=== PATIENT | male | born 1940 | race Caucasian/White ===

== ENCOUNTER 2020-04-15 13:46 | Outpatient (CLI) | payer MEDICARE, SELFPAY ==
--- NOTE | 2020-04-15 13:49 | ECG_ITS ---
Measurements Intervals [place] Rate: 78 P: [place]: 0 QRS: -26 QRSD: 95 T: 29 QT: 356 QTc: 408 Interpretive Statements ATRIAL FIBRILLATION CANNOT RULE OUT SEPTAL INFARCT, AGE INDETERMINATE BASELINE ARTIFACT- I, II, III, AVR, AVL, AVF ABNORMAL ECG Electronically Signed On 04-15-2020 14:15:52 CDT by Dany Will D.O.
[2020-04-15 14:25] LABS: Basophils Absolute Auto 0.1 K/mm3 (0.0-0.1); Basophils Percent Auto 1.5 % (0.2-1.2); Eosinophils Absolute Auto 0.1 K/mm3 (0-0.3); Eosinophils Percent Auto 0.8 % (0-4.4); Hematocrit 33.1 % (42.0-52.0); Hemoglobin 11.4 g/dL (14.0-18.0); Immature Granulocyte Absolute 0.08 K/mm3 (0.00-0.031); Immature Granulocyte Percent A 1.1 % (0-0.5); Immature Platelet Fraction Pct 14.2 % (0.9-11.2); Lymphocytes Absolute Auto 1.49 K/mm3 (0.9-3.2); Lymphocytes Percent Auto 20.9 % (18.3-44.2); Mean Corpuscular HGB Conc 34.4 g/dl (32-36); Mean Corpuscular Hemoglobin 28.8 pg (26-34); Mean Corpuscular Volume 83.6 fl (80-100); Monocytes Absolute Auto 0.7 K/mm3 (0.1-0.6); Monocytes Percent Auto 10.1 % (2.6-8.5); Neutrophils Absolute Auto 4.7 K/mm3 (1.3-6.7); Neutrophils Percent Auto 65.6 % (45.5-73.1); Platelet Count Result 161 k/mm3 (150-375); Red Blood Count 3.96 M/mm3 (4.6-6.20); Red Cell Distribution Width 19.5 % (11.5-14.5); White Blood Count 7.1 K/mm3 (4.5-10.0)
[2020-04-15 14:34] LABS: Partial Thromboplastin Time 25.4 SECONDS (22.3-36.8)
[2020-04-15 14:35] LABS: Blood Urea Nitrogen 21 mg/dL (9-20); Calcium 10.7 mg/dL (8.4-10.2); Carbon Dioxide 27 mmol/L (22-30); Chloride 103 mmol/L (98-107); Estimated Glomerular Filt Rate 53; Glucose 110 mg/dL (75-110); Potassium 3.9 mmol/L (3.4-5.0); Sodium 139 mmol/L (137-145)
== END 2020-04-15 13:47 | disposition home or self-care (01) ==
PROVIDERS: Visit Provider Urology
DX: Z01.818 Encounter for other preprocedural examination (principal); C67.9 Malignant neoplasm of bladder, unspecified; R94.31 Abnormal electrocardiogram [ECG] [EKG]; Z79.899 Other long term (current) drug therapy
CPT/HCPCS: 36415; 80048; 85025; 85055; 85610; 85730; 87086; 93005

== ENCOUNTER 2020-04-18 00:52 | Outpatient (CLI) | payer MEDICARE, SELFPAY ==
[2020-04-18 16:39] LABS: SARS-CoV-2 RNA PCR Negative
== END 2020-04-18 00:53 | disposition home or self-care (01) ==
LOC: ANHCOVIDDT 00:53
PROVIDERS: Visit Provider Urology
DX: Z01.812 Encounter for preprocedural laboratory examination (principal); Z20.828 Contact with and (suspected) exposure to other viral communicable diseases
CPT/HCPCS: 87635; C9803; U0003

== ENCOUNTER 2020-04-21 00:37 | Day surgery (SDC) | payer MEDICARE, SELFPAY ==
[2020-04-14 09:51] VITALS: BMI 27.8
--- NOTE | 2020-04-21 08:17 | WPDHPUPDATE1 ---
History and Physical Update Update Date/Time: 04/21/20 08:17 History and Physical has been reviewed, including an updated exam of the patient. There are NO changes in the patient's condition. Risks, benefits, and alternatives have been discussed and questions answered. Patient agrees to proceed with procedure.
--- NOTE | 2020-04-21 10:06 | WPDHPUPDATE1 ---
History and Physical Update Update Date/Time: 04/21/20 10:06 History and Physical has been reviewed, including an updated exam of the patient. There are NO changes in the patient's condition. Risks, benefits, and alternatives have been discussed and questions answered. Patient agrees to proceed with procedure.
--- NOTE | 2020-04-21 10:29 | SUR.PREOP ---
Patient says he was told to stop asprin and take everything else. took plavix yesterday. Dr Caballero spoke with patient. Surgery cancelled. Daughter notified.
== END 2020-04-21 10:40 | disposition home or self-care (01) ==
PROVIDERS: Visit Provider Urology
PROC: 0TBB8ZZ Excision of Bladder, Via Natural or Artificial Opening Endoscopic (ICD-10-PCS; principal; 2020-04-21 13:00)
DX: D49.4 Neoplasm of unspecified behavior of bladder (principal); Z79.02 Long term (current) use of antithrombotics/antiplatelets; Z53.09 Procedure and treatment not carried out because of other contraindication; Z85.51 Personal history of malignant neoplasm of bladder; I10 Essential (primary) hypertension; E11.9 Type 2 diabetes mellitus without complications; Z79.84 Long term (current) use of oral hypoglycemic drugs; M10.9 Gout, unspecified; Z85.048 Personal history of other malignant neoplasm of rectum, rectosigmoid junction, and anus; Z90.49 Acquired absence of other specified parts of digestive tract; Z96.653 Presence of artificial knee joint, bilateral
CPT/HCPCS: 36415; 80048; 85025; 85055; 85610; 85730; 87086; 93005; 99211; A9270; G0463

== ENCOUNTER 2020-05-07 09:08 | Outpatient (CLI) | payer MEDICARE, SELFPAY | END 2020-05-07 09:09 | disposition home or self-care (01) | PROVIDERS: Visit Provider Urology | DX: Z01.818 Encounter for other preprocedural examination (principal); C67.9 Malignant neoplasm of bladder, unspecified | CPT/HCPCS: 87086 ==

== ENCOUNTER 2020-05-09 04:33 | Outpatient (CLI) | payer MEDICARE, SELFPAY ==
[2020-05-09 18:08] LABS: SARS-CoV-2 RNA PCR Negative
== END 2020-05-09 04:34 | disposition home or self-care (01) ==
LOC: ANHCOVIDDT 04:34
PROVIDERS: Visit Provider Urology
DX: Z01.818 Encounter for other preprocedural examination (principal); Z11.59 Encounter for screening for other viral diseases
CPT/HCPCS: 87635; C9803; U0003

== ENCOUNTER 2020-05-12 00:25 | Day surgery (SDC) | payer MEDICARE, SELFPAY ==
[2020-05-05 14:39] VITALS: BMI 27.8
[2020-05-12] VITALS (8 sets, daily range): BP systolic 104–176; BP diastolic 66–92; PULSE 70–99; RESP 18–24; TEMP 36.3–36.7; O2SAT 97–100
--- NOTE | 2020-05-12 13:06 | WPDANESEPPF ---
Anes - Initial Pre Proc Eval Procedure: Operation Date: 05/12/20 15:00 Proposed Procedures p Trans Urethral Resection Bladder Tumor - Miguelangel Caballero MD Date/Time: 05/12/20 13:06 Surgeon: Miguelangel Caballero MD Pre Op Diagnosis: Bladder Cancer Patient Data Age: 79 Gender: M Height: 1.8 m Weight: 90.4 kg Allergies Allergy/AdvReac Type Severity Reaction Status Date / Time crab Allergy Mild Vomiting Verified 05/12/20 13:03 Home Medications Medication Instructions Recorded Confirmed Type allopurinol 300 mg PO DAILY 09/15/19 05/12/20 History atenolol 100 mg PO DAILY 09/15/19 05/12/20 History glipizide 5 mg PO DAILY 09/15/19 05/12/20 History lisinopril-hydrochlorothiazide 1 tablet PO DAILY 09/15/19 05/12/20 History aspirin [Children's Aspirin] 81 mg PO DAILY@0800 #30 tablet 09/17/19 05/12/20 Rx clopidogrel 75 mg PO QAM #30 tablet 09/17/19 05/05/20 Rx levetiracetam [Keppra] 500 mg PO Q12HR #60 tablet 09/17/19 05/12/20 Rx Patient hx anesthesia problems: none Family hx anesthesia problems: none [facility] Past Medical History Medical History (Updated 05/12/20 @ 13:12 by Jagdish Lugo MD) Bladder cancer He has had multiple cystoscopies with transurethral resection of bladder tumor and fulguration over the years per Dr. Caballero. Carotid stenosis, bilateral Cerebellar infarct Chronic anemia Colon cancer Patient had stage II rectal cancer, which was resected and August 2003. He apparently had chemotherapy and radiation thereafter. Diabetes mellitus Generalized seizure (~09/15/19) Gout HTN (hypertension) Pneumonia Surgical History Surgical History H/O arthroscopic knee surgery History of bilateral knee replacement History of colostomy History of partial colectomy August 2003; exploratory laparotomy with low anterior resection of colo rectum. This was complicated by a leak with subsequent transverse loop colostomy. Thereafter he had a repeat exploratory laparotomy with adhesiolysis, takedown and repair of a parastomal hernia, partial descending colectomy, and end descending colostomy. History of removal of Port-a-Cath History of transurethral destruction of bladder lesion On multiple occasions dating back 14 August 2016. Hx of tonsillectomy Social History Social History (Updated 09/15/19 @ 22:22 by Amelia López PA-C) Social History: The patient lives in [place]. His son, Patricio, is his surrogate decision maker and he is listed as a full code. He smoked up to 2 packs of cigarettes per day for 45 years and quit about 25 years ago. No alcohol or drug abuse. His primary care provider is Dr. Mohit Powell. Patient is very active outside in his garden. Gender identity (if verbalized by the patient): Male Anes - Eval Final PreProcedure Day of Procedure 05/12/20 13:06 Patient weight: overweight Heart: regular rate and rhythm Lungs: clear to auscultation and normal air movement Airway: Mallampati scale class II Neurological: alert and oriented Last oral intake: >/= 8 hours ASA classification: III Emergent: no Anesthetic plan: proceed Anesthesia type and monitoring: general LMA Informed Consent: The patient's anesthetic plan and its attendant risks and benefits were discussed with the patient/family/POA. Questions were solicited and answers provided to the satisfaction of the patient/family/POA.
[2020-05-12] MEDS: LACTATED RINGERS 1,000 ML 30 ML IV CONT (13:15)
[2020-05-12 13:18] LABS: Glucose Point of Care 103 (65-105)
--- NOTE | 2020-05-12 13:36 | WPDHPUPDATE1 ---
History and Physical Update Update Date/Time: 05/12/20 13:36 History and Physical has been reviewed, including an updated exam of the patient. There are NO changes in the patient's condition. Risks, benefits, and alternatives have been discussed and questions answered. Patient agrees to proceed with procedure.
[2020-05-12] MEDS: atenoloL 50 MG TABLET 100 MG PO (13:55)
[2020-05-12] MEDS: ceFAZolin 2 GM/D5W 50 ML 2 GM/50 ML BAG IVPB (14:48)
[2020-05-12] MEDS: LIDOCAINE HCL 2% GEL UROJET 10 ML PKG MUCOUS MEM (15:03)
--- NOTE | 2020-05-12 15:11 | PM.PROC ---
Procedure Note - Detailed Date of procedure: 05/12/20 Pre-op diagnosis: Bladder Cancer Post-op diagnosis: same Procedure performed: Urethral dilation with male sounds up to 24 Upper Sorbian. Transurethral section of bladder tumor small Description of procedure: Patient was taken to the operative suite and correctly identified. He was then placed in dorsal lithotomy position once anesthesia was obtained. The urethra would not allow passage of the cystoscope. We thus used male sounds to dilate up to 24 Upper Sorbian. Twenty-four Upper Sorbian resectoscope sheath was then inserted into the bladder. The bladder is inspected in its entirety. He has some small tumors along the anterior wall on the right. These measured approximately 1.5 cm total. We went ahead and resected these areas. He had some mild erythema along prior resection site which was fulgurated. The bladder was drained 2% viscous lidocaine was inserted urethra is taken recovery stable condition. He will be discharged home with pain meds and antibiotics. He is to call for the path results in 1 week time. If develops any problems he will call so we can deal with appropriately. Anesthesia: GLMA Surgeon: Miguelangel Caballero MD Drains: No Packing: No Pathology: yes Complications: No immediate complications Condition: stable Disposition: PACU
[2020-05-12 15:46] LABS: Glucose Point of Care 90 (65-105)
== END 2020-05-12 17:10 | disposition home or self-care (01) ==
PROVIDERS: Visit Provider Urology
PROC: 0TBB8ZZ Excision of Bladder, Via Natural or Artificial Opening Endoscopic (ICD-10-PCS; CPT 52234; principal; 2020-05-12 15:00)
DX: C67.3 Malignant neoplasm of anterior wall of bladder (principal); I10 Essential (primary) hypertension; E11.9 Type 2 diabetes mellitus without complications; G40.909 Epilepsy, unspecified, not intractable, without status epilepticus; D64.9 Anemia, unspecified; I65.23 Occlusion and stenosis of bilateral carotid arteries; Z85.048 Personal history of other malignant neoplasm of rectum, rectosigmoid junction, and anus; Z92.21 Personal history of antineoplastic chemotherapy; Z92.3 Personal history of irradiation; Z79.02 Long term (current) use of antithrombotics/antiplatelets; Z79.82 Long term (current) use of aspirin
CPT/HCPCS: 52234; 87086; 87635; 88305; 88307; A9270; C9803; J0690; J2405; J2704; J3010; J7120; U0003

== ENCOUNTER 2020-12-29 07:29 | Outpatient (CLI) | payer MEDICARE, SELFPAY ==
[2020-12-29 08:15] LABS: Basophils Absolute Auto 0.2 K/mm3 (0.0-0.1); Basophils Percent Auto 1.9 % (0.2-1.2); Eosinophils Absolute Auto 0.1 K/mm3 (0-0.3); Eosinophils Percent Auto 0.8 % (0-4.4); Hematocrit 34.1 % (42.0-52.0); Hemoglobin 11.7 g/dL (14.0-18.0); Immature Granulocyte Absolute 0.21 K/mm3 (0.00-0.031); Immature Granulocyte Percent A 2.5 % (0-0.5); Immature Platelet Fraction Pct 23.1 % (0.9-11.2); Lymphocytes Absolute Auto 0.91 K/mm3 (0.9-3.2); Lymphocytes Percent Auto 10.7 % (18.3-44.2); Mean Corpuscular HGB Conc 34.3 g/dl (32-36); Mean Corpuscular Hemoglobin 29.5 pg (26-34); Mean Corpuscular Volume 86.1 fl (80-100); Monocytes Absolute Auto 0.8 K/mm3 (0.1-0.6); Monocytes Percent Auto 9.1 % (2.6-8.5); Neutrophils Absolute Auto 6.4 K/mm3 (1.3-6.7); Platelet Count Result 126 k/mm3 (150-375); Red Blood Count 3.96 M/mm3 (4.6-6.20); Red Cell Distribution Width 19.6 % (11.5-14.5); White Blood Count 8.5 K/mm3 (4.5-10.0)
[2020-12-29 08:23] LABS: INR 0.9; Prothrombin Time 13.2 Seconds (11.1-14.7)
[2020-12-29 08:24] LABS: Partial Thromboplastin Time 26.4 SECONDS (22.3-36.8)
[2020-12-29 08:26] LABS: Anion Gap 6 mmol/L (8-16); Blood Urea Nitrogen 19 mg/dL (9-20); Calcium 10.7 mg/dL (8.4-10.2); Carbon Dioxide 30 mmol/L (22-30); Chloride 104 mmol/L (98-107); Estimated Glomerular Filt Rate > 60; Glucose 99 mg/dL (75-110); Potassium 3.9 mmol/L (3.4-5.0); Sodium 140 mmol/L (137-145)
[2020-12-29 08:46] LABS: Anisocytosis 1+ (NORMAL); Macrocytosis 1+ (NORMAL); Ovalocytes 1+ (NORMAL); Platelet Estimate Adequate (Adequate); Tear Drop Cells 1+ (NORMAL)
[2020-12-29 08:47] LABS: Acanthocytes 1+ (NORMAL); Poikilocytosis 1+ (NORMAL)
[2020-12-29 08:48] LABS: Schistocytes 1+ (NORMAL)
== END 2020-12-29 07:30 | disposition home or self-care (01) ==
PROVIDERS: PCP Internal Medicine; Visit Provider Urology
DX: Z01.812 Encounter for preprocedural laboratory examination (principal); C67.9 Malignant neoplasm of bladder, unspecified; Z51.81 Encounter for therapeutic drug level monitoring; Z79.899 Other long term (current) drug therapy
CPT/HCPCS: 36415; 80048; 85025; 85055; 85610; 85730; 87086; 87088

== ENCOUNTER → 2021-01-02 06:33 | Outpatient (CLI) | payer MEDICARE, SELFPAY ==
[2021-01-02 19:10] LABS: SARS-CoV-2 RNA PCR Negative
== END ==
PROVIDERS: PCP Internal Medicine; Visit Provider Urology
DX: Z01.812 Encounter for preprocedural laboratory examination (principal); Z20.822 Contact with and (suspected) exposure to COVID-19
CPT/HCPCS: C9803; U0003; U0005

== ENCOUNTER 2021-01-05 00:24 | Day surgery (SDC) | payer MEDICARE, SELFPAY ==
[2020-12-24 10:10] VITALS: BMI 28.8
[2021-01-05 12:43] VITALS: BMI 28.5
[2021-01-05 13:04] VITALS: BP 179/78; PULSE 92; RESP 20; TEMP 36.7; O2SAT 99
[2021-01-05 13:05] LABS: Glucose Point of Care 109 (65-105)
[2021-01-05] MEDS: LACTATED RINGERS 1,000 ML 30 ML IV CONT (13:05)
--- NOTE | 2021-01-05 13:17 | WPDHPUPDATE1 ---
History and Physical Update Update Date/Time: 01/05/21 13:17 History and Physical has been reviewed, including an updated exam of the patient. There are NO changes in the patient's condition. Risks, benefits, and alternatives have been discussed and questions answered. Patient agrees to proceed with procedure.
--- NOTE | 2021-01-05 13:20 | WPDANESEPPF ---
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 Patient Data Age: 80 Gender: M Height: 5 ft 10 in Weight: 90.4 kg Last Vital Signs Temp 98.1 F 01/05/21 13:04 Pulse 92 01/05/21 13:04 Resp 20 01/05/21 13:04 BP 179/78 H 01/05/21 13:04 Pulse Ox 99 01/05/21 13:04 Allergies Allergy/AdvReac Type Severity Reaction Status Date / Time crab AdvReac Mild Vomiting Verified 01/05/21 12:41 Home Medications Medication Instructions Recorded Confirmed Type aspirin [Children's Aspirin] 81 mg PO DAILY@0800 #30 tablet 09/17/19 01/05/21 Rx allopurinol 300 mg tablet 300 mg PO DAILY #90 tablet 10/19/20 01/05/21 Rx clopidogrel 75 mg tablet 75 mg PO QAM #90 tablet 10/19/20 01/05/21 Rx levetiracetam 500 mg tablet 500 mg PO Q12HR #180 tablet 10/19/20 01/05/21 Rx atenolol 100 mg PO QAM 12/24/20 01/05/21 History glipizide 5 mg PO QACDINNER 12/24/20 01/05/21 History lisinopril-hydrochlorothiazide 1 tablet PO QAM 12/24/20 01/05/21 History Laboratory Tests 01/05/21 12:58 POC Capillary Glucose 109 mg/dl mg/dl (65-105) Patient hx anesthesia problems: none Family hx anesthesia problems: none PMFSH Past Medical History Medical History (Updated 11/01/20 @ 19:09 by Mor Howard DO) Bladder cancer He has had multiple cystoscopies with transurethral resection of bladder tumor and fulguration over the years per Dr. Caballero. Carotid stenosis, bilateral Cerebellar infarct Chronic anemia Colon cancer Patient had stage II rectal cancer, which was resected and August 2003. He apparently had chemotherapy and radiation thereafter. Diabetes mellitus Generalized seizure (~09/15/19) Gout HTN (hypertension) Pneumonia Surgical History Surgical History H/O arthroscopic knee surgery History of bilateral knee replacement History of colostomy History of partial colectomy August 2003; exploratory laparotomy with low anterior resection of colo rectum. This was complicated by a leak with subsequent transverse loop colostomy. Thereafter he had a repeat exploratory laparotomy with adhesiolysis, takedown and repair of a parastomal hernia, partial descending colectomy, and end descending colostomy. History of removal of Port-a-Cath History of transurethral destruction of bladder lesion On multiple occasions dating back 14 August 2016. Hx of tonsillectomy Social History Social History (Updated 10/19/20 @ 08:22 by Kalyani Bryan) Social History: The patient lives in [place]. His son, Patricio, is his surrogate decision maker and he is listed as a full code. He smoked up to 2 packs of cigarettes per day for 45 years and quit about 25 years ago. No alcohol or drug abuse. His primary care provider is Dr. Mohit Powell. Patient is very active outside in his garden. Smoking packs per day: 2 Smoking cigarettes per day: 40.0 Years smoked: 35 Smoking pack-years: 70.00 Smoking status: Former smoker Smoking end date: 05/13/90 Alcohol intake: former Alcohol use details: DRANK SOCIALLY IN PAST Substance use: never Living arrangements: with family Additional living arrangements comments: SON Gender identity (if verbalized by the patient): Male Spiritual care concerns: No Anes - Eval Final PreProcedure Day of Procedure 01/05/21 13:20 Patient weight: overweight Heart: regular rate and rhythm Lungs: clear to auscultation Airway: Mallampati scale class II Neurological: alert and oriented Last oral intake: >/= 8 hours ASA classification: III Emergent: no Anesthetic plan: proceed Anesthesia type and monitoring: general LMA and standa
[2021-01-05] MEDS: ceFAZolin 2 GM/D5W 50 ML 2 GM/50 ML BAG IVPB (14:38)
[2021-01-05] MEDS: LIDOCAINE HCL 2% GEL UROJET 10 ML PKG MUCOUS MEM (15:06)
--- NOTE | 2021-01-05 15:07 | PM.PROC ---
Procedure Note - Detailed Date of procedure: 01/05/21 Pre-op diagnosis: malginant neoplasm bladder neck Post-op diagnosis: same Procedure performed: Cysto with bladder biopsy and fulguration Description of procedure: Patient is taken the operative suite correctly identified. Once anesthesia was obtained he was placed in dorsal lithotomy position and prepped draped usual sterile fashion. Twenty-two Mohawk scope was inserted into the bladder. He has couple of if discrete areas which were papillary in nature. This along the posterior wall and left lateral wall. These were cold cup biopsied. We then fulgurated these areas as well as other erythematous areas. Patient tolerated procedure well without any complications. Bladder was drained. 2% viscous lidocaine was inserted urethra. Patient is taken recovery stable condition. He will call for path results next week. Anesthesia: GLMA Surgeon: Miguelangel Caballero MD Drains: No Packing: No Pathology: yes Complications: No immediate complications Condition: stable Disposition: PACU
[2021-01-05 15:11] VITALS: BP 100/62; PULSE 71; RESP 16; TEMP 37.4; O2SAT 100
[2021-01-05 15:23] LABS: Glucose Point of Care 98 (65-105)
[2021-01-05 15:25] VITALS: BP 115/59; PULSE 74; RESP 14; O2SAT 100
[2021-01-05 15:40] VITALS: BP 147/78; PULSE 75; RESP 16; O2SAT 98
[2021-01-05 16:00] VITALS: BP 153/73; PULSE 78
[2021-01-05 16:30] VITALS: BP 170/96; PULSE 93
== END 2021-01-05 16:40 | disposition home or self-care (01) ==
PROVIDERS: PCP Internal Medicine; Visit Provider Urology
PROC: 0TBB8ZX Excision of Bladder, Via Natural or Artificial Opening Endoscopic, Diagnostic (ICD-10-PCS; CPT 52204; principal; 2021-01-05 14:30)
DX: C67.5 Malignant neoplasm of bladder neck (principal); I10 Essential (primary) hypertension; E11.9 Type 2 diabetes mellitus without complications; G40.909 Epilepsy, unspecified, not intractable, without status epilepticus; D64.9 Anemia, unspecified; I65.23 Occlusion and stenosis of bilateral carotid arteries; M10.9 Gout, unspecified; Z85.048 Personal history of other malignant neoplasm of rectum, rectosigmoid junction, and anus; Z92.21 Personal history of antineoplastic chemotherapy; Z92.3 Personal history of irradiation; Z86.73 Personal history of transient ischemic attack (TIA), and cerebral infarction without residual deficits; Z79.82 Long term (current) use of aspirin; Z79.02 Long term (current) use of antithrombotics/antiplatelets; Z79.84 Long term (current) use of oral hypoglycemic drugs; Z93.3 Colostomy status; Z90.49 Acquired absence of other specified parts of digestive tract; Z87.891 Personal history of nicotine dependence
CPT/HCPCS: 52204; 36415; 80048; 82948; 85025; 85055; 85610; 85730; 87086; 87088; 88305; 88342; A9270; C9803; J0690; J2405; J2704; J3010; J7120; U0003; U0005

== ENCOUNTER 2021-04-25 09:54 | Outpatient (CLI) | payer MEDICARE, SELFPAY ==
--- NOTE | ~2021-04-25 | US_ITS ---
EXAMINATION: US carotid duplex BI DATE: 04/25/2021 10:46 INDICATION: Occlusion and stenosis of the bilateral carotid arteries TECHNIQUE: Grayscale, color Doppler, and pulsed Doppler images of the cervical carotid arteries were obtained. The degree of vessel stenosis is placed in one of the following categories: normal, <50%, 5 0-69%, >=70% but less than near-occlusion, near-occlusion, or total occlusion. Note that percent sten osis relative to normal distal artery lumen diameter is indirectly measured from velocity measurement s as described by Praful, et al. Radiology 2003; [id number]. COMPARISON: 09/16/2019 FINDINGS: RIGHT: The right common carotid artery (CCA) peak systolic velocity (PSV) is 81 cm/s. The right internal car otid artery (ICA) PSV is 161 cm/s. The right ICA end-diastolic velocity (EDV) is 39 cm/s. The right I CA/CCA PSV ratio is 2.0. Grayscale and color Doppler images yield an estimate of 50-69% diameter redu ction from plaque in the ICA. The external carotid artery (ECA) PSV is 98 cm/s. There is antegrade fl ow in the right vertebral artery. LEFT: The left CCA PSV is 66 cm/s. The left ICA is occluded with no evident vascular flow on color Doppler. The ECA PSV is 67 cm/s. There is antegrade flow in the left vertebral artery. IMPRESSION: 1. 50-69% stenosis in the right internal carotid artery. 2. Complete occlusion of the left internal carotid artery. 3. Cardiac arrhythmia is present. Correlate with EKG. Reviewed, dictated and finalized at location A.
== END 2021-04-25 09:55 | disposition home or self-care (01) ==
PROVIDERS: PCP Internal Medicine; Visit Provider Nurse Practitioner
DX: I65.23 Occlusion and stenosis of bilateral carotid arteries (principal)
CPT/HCPCS: 93880

== ENCOUNTER → 2021-09-08 09:03 | Outpatient (CLI) | payer MEDICARE, SELFPAY ==
--- NOTE | ~2021-09-08 | XR_ITS ---
EXAMINATION: XR foot LT min 3V DATE: 09/08/2021 09:58 INDICATION: Left foot pain TECHNIQUE: Dorsoplantar, lateral, and 2 oblique views of the left foot were obtained. COMPARISON: None. FINDINGS: Bone alignment is normal. There is no fracture. There is moderate polyarticular osteoarthri tis involving multiple interphalangeal joints. Calcified atherosclerosis is noted. There is a plantar calcaneal enthesophyte. IMPRESSION: 1. No acute osseous abnormality. Reviewed, dictated and finalized at location A.
== END ==
PROVIDERS: PCP Internal Medicine; Visit Provider Internal Medicine
DX: M79.675 Pain in left toe(s) (principal); M77.32 Calcaneal spur, left foot; I70.90 Unspecified atherosclerosis
CPT/HCPCS: 73630

== ENCOUNTER → 2021-09-10 10:35 | Outpatient (CLI) | payer MEDICARE, SELFPAY ==
--- NOTE | ~2021-09-10 | XR_ITS ---
EXAMINATION: XR hip BI wo pelvis INDICATION: Bilateral hip pain TECHNIQUE: Two views of each hip are obtained. COMPARISON: None available FINDINGS: Bone alignment is normal. There is no fracture. There is mild osteoarthritis of the hips. C alcified atherosclerosis is noted. A surgical anastomosis is noted in the pelvis. There are also surg ical clips in the pelvis and left abdomen. IMPRESSION: 1. Mild osteoarthritis of the hips. Reviewed, dictated and finalized at location A.
== END ==
PROVIDERS: PCP Internal Medicine; Visit Provider Internal Medicine
DX: M25.559 Pain in unspecified hip (principal); M16.0 Bilateral primary osteoarthritis of hip
CPT/HCPCS: 73521

== ENCOUNTER 2021-09-27 14:12 | Outpatient (CLI) | payer MEDICARE, SELFPAY ==
--- NOTE | ~2021-09-27 | US_ITS ---
EXAMINATION: US art doppler w press YU EXAM DATE: 09/27/2021 15:20 INDICATION: Bilateral peripheral arterial disease, left foot ulcer. Poor left foot pulses. Hypertensi on. TECHNIQUE: Segmental pressures and plethysmographic and Doppler waveforms of the brachial and lower e xtremity arteries were obtained. There is no prior study for comparison. FINDINGS: Right and left brachial artery pressures of 150 mm Hg and 150 mm Hg, respectively, are concordant (no rmal difference <= 30 mmHg). RIGHT LEG: The ankle-brachial index (JOCELIN) is 1.05 (normal >= 0.9-1). The great toe-brachial index (TBI) is 0.57 (normal >= 0.65). The lower extremity ratios, segmental pressure gradients as follows; Proximal superficial femoral artery:- Could not obtain ( mmHg). Distal superficial femoral artery: ----- 1.13 (170 mmHg). Popliteal: Could not obtain ( mmHg). Dorsalis pedis: 1.05 (157 mmHg). Posterior tibial: Could not obtain ( mmHg). (Normal gradients <= 20-30 mmHg between adjacent levels on the same leg or the same levels on the two legs). Arterial waveforms are monophasic dorsalis pedis, otherwise biphasic. LEFT LEG: The ankle-brachial index (JOCELIN) is 0.55 (normal >= 0.9-1). The great toe-brachial index (TBI) is 0.38 (normal >= 0.65). The lower extremity ratios, segmental pressure gradients as follows; Proximal superficial femoral artery:- Could not obtain ( mmHg). Distal superficial femoral artery: ----- Could not obtain ( mmHg). Popliteal: Could not obtain ( mmHg). Dorsalis pedis: 0.55 (83 mmHg). Posterior tibial: Could not obtain ( mmHg). (Normal gradients <= 20-30 mmHg between adjacent levels on the same leg or the same levels on the two legs). Arterial waveforms are biphasic through popliteal, monophas ic below. IMPRESSION: 1. Right ankle-brachial index 1.05, normal. 2. Left ankle-brachial index 0.55, moderately decreased. 3. Segmental pressures as above. Reviewed, dictated and finalized at location B. REAMER
== END 2021-09-27 14:13 | disposition home or self-care (01) ==
PROVIDERS: PCP Internal Medicine; Visit Provider Podiatrist Foot & Ankle Surgery
DX: I73.9 Peripheral vascular disease, unspecified (principal)
CPT/HCPCS: 93923

== ENCOUNTER 2021-10-22 14:52 | Observation (INO) | payer MEDICARE, SELFPAY ==
[2021-10-22] VITALS (13 sets, daily range): BP systolic 106–131; BP diastolic 39–88; PULSE 84–98; RESP 14–22; TEMP 36.8–37.5; O2SAT 98–100; BMI 26.9
[2021-10-22 16:11] LABS: Basophils Absolute Auto 0.1 K/mm3 (0.0-0.1); Eosinophils Percent Auto 0.3 % (0-4.4); Immature Granulocyte Absolute 0.32 K/mm3 (0.00-0.031); Immature Granulocyte Percent A 4.7 % (0-0.5); Immature Platelet Fraction Pct 34.8 % (0.9-11.2); Lymphocytes Absolute Auto 0.89 K/mm3 (0.9-3.2); Lymphocytes Percent Auto 12.9 % (18.3-44.2); Mean Corpuscular HGB Conc 30.4 g/dl (32-36); Mean Corpuscular Hemoglobin 26.5 pg (26-34); Mean Corpuscular Volume 87.2 fl (80-100); Monocytes Absolute Auto 1.1 K/mm3 (0.1-0.6); Monocytes Percent Auto 15.4 % (2.6-8.5); Neutrophils Absolute Auto 4.5 K/mm3 (1.3-6.7); Neutrophils Percent Auto 65.7 % (45.5-73.1); Platelet Count Result 119 k/mm3 (150-375); Red Blood Count 2.19 M/mm3 (4.6-6.20); Red Cell Distribution Width 23.7 % (11.5-14.5); White Blood Count 6.9 K/mm3 (4.5-10.0)
[2021-10-22 16:18] LABS: INR 2.6; Prothrombin Time 27.5 Seconds (11.1-14.7)
[2021-10-22 16:19] LABS: Anion Gap 6 mmol/L (8-16); Blood Urea Nitrogen 23 mg/dL (9-20); Calcium 9.3 mg/dL (8.4-10.2); Carbon Dioxide 25 mmol/L (22-30); Chloride 98 mmol/L (98-107); Estimated CRCL calculation 47 ml/min; Estimated Glomerular Filt Rate > 60; Glucose 101 mg/dL (65-110); Partial Thromboplastin Time 41.3 SECONDS (22.3-36.8); Potassium 4.2 mmol/L (3.4-5.0); Sodium 129 mmol/L (137-145)
[2021-10-22 17:14] LABS: Hematocrit 19.1 % (42.0-52.0); Hemoglobin 5.8 g/dL (14.0-18.0)
[2021-10-22 17:16] LABS: Hypochromasia 1+ (NORMAL); Platelet Estimate Decreased (Adequate)
[2021-10-22 17:17] LABS: Anisocytosis 1+ (NORMAL); Ovalocytes 2+ (NORMAL); Poikilocytosis 2+ (NORMAL)
[2021-10-22 17:18] LABS: Acanthocytes 1+ (NORMAL); Schistocytes 2+ (NORMAL)
--- NOTE | 2021-10-22 17:23 | PC.NURSE ---
Pt updated on test results and treatment plan. Pt agreeable to blood transfusion. Blood consent obtained.
--- NOTE | 2021-10-22 17:35 | ED.GENADULT ---
HPI - General Adult General Chief complaint: Recheck/Abnormal Lab/Rx Stated complaint: needs blood transfusion Time Seen by Provider: 10/22/21 15:22 History of Present Illness HPI narrative: Patient is an 81-year-old male who presents ER with abnormal outpatient lab work. Patient has been having intermittent nosebleeds over the last month. He is on Xarelto. Reports when he has a nosebleed that lasted for approximately 1 hour. Last nosebleed was today but it has stopped on its own. Patient's outpatient labs show that he had a hemoglobin around 6. Denies any dark black stools. No hematemesis. Patient also reports that he has vascular surgery scheduled in the early part of next week for some ischemic ulcers on his foot. He is supposed to hold his Xarelto starting 10/24/2021. Patient reports exertional fatigue as well as dizziness when going from sitting to standing. He is quite pale. Related Data Home Medications Medication Instructions Recorded Confirmed atenolol 100 mg PO QAM 12/24/20 09/08/21 lisinopril-hydrochlorothiazide 1 tablet PO QAM 12/24/20 09/08/21 Allergies Allergy/AdvReac Type Severity Reaction Status Date / Time crab AdvReac Mild Vomiting Verified 10/22/21 15:55 Review of Systems Review of Systems: All systems reviewed & are unremarkable except as noted in HPI and below Constitutional: Constitutional: Reports chills, Reports fatigue and Denies fever(s) ENT: Reports epistaxis, Denies nasal congestion and Denies sore throat Cardiovascular: Cardiovascular: Denies chest pain, Denies rapid heart rate and Denies radiating jaw, neck or arm pain Respiratory: Respiratory: Denies chest congestion, Denies cough, Reports dyspnea and Denies wheezing Gastrointestinal: Gastrointestinal: Denies abdominal pain, Denies constipation, Denies diarrhea, Denies nausea and Denies vomiting PMFSH Past Medical History Medical History Bladder cancer He has had multiple cystoscopies with transurethral resection of bladder tumor and fulguration over the years per Dr. Caballero. Carotid stenosis, bilateral Cerebellar infarct Chronic anemia Colon cancer Patient had stage II rectal cancer, which was resected and August 2003. He apparently had chemotherapy and radiation thereafter. Diabetes mellitus Generalized seizure (~09/15/19) Gout HTN (hypertension) Pneumonia Surgical History Surgical History H/O arthroscopic knee surgery History of bilateral knee replacement History of colostomy History of partial colectomy August 2003; exploratory laparotomy with low anterior resection of colo rectum. This was complicated by a leak with subsequent transverse loop colostomy. Thereafter he had a repeat exploratory laparotomy with adhesiolysis, takedown and repair of a parastomal hernia, partial descending colectomy, and end descending colostomy. History of removal of Port-a-Cath History of transurethral destruction of bladder lesion On multiple occasions dating back 14 August 2016. Hx of tonsillectomy Social History Social History Social History: The patient lives in [place]. His son, Patricio, is his surrogate decision maker and he is listed as a full code. He smoked up to 2 packs of cigarettes per day for 45 years and quit about 25 years ago. No alcohol or drug abuse. His primary care provider is Dr. Mohit Powell. Patient is very active outside in his garden. Smoking packs per day: 2 Smoking cigarettes per day: 40.0 Years smoked: 35 Smoking pack-years: 70.00 Smoking status: Former smoker Second hand tobacco smoke exposure: No Smoking end date: 05/13/90 Alcohol intake: former Alcohol use details: DRANK SOCIALLY IN PAST Substance use: never Substance use type: does not use Additional living arrangements comments: SON Gender identi
[2021-10-22] MEDS: SODIUM CHLORIDE 0.9% IV 250 ML 30 ML IV CONT (18:00)
[2021-10-22] MEDS: TUBING, BLOOD SET 1 EACH XX (18:00)
--- NOTE | 2021-10-22 18:00 | PC.NURSE ---
Blood transfusion initiated. Pt denies previous blood transfusions or adverse reaction.
--- NOTE | 2021-10-22 18:15 | PC.NURSE ---
Pt tolerating blood transfusion well. No adverse reaction noted. VSS.
--- NOTE | 2021-10-22 19:55 | PM.IMHP ---
H&P: HPI History of Present Illness Date/Time: 10/22/21 19:55 Chief Complaint: Abnormal lab value Narrative: This is an 81-year-old male with past medical history significant for atrial fibrillation, anticoagulated with Xarelto rate controlled, hypertension, gout. Patient presented to the emergency room after outpatient lab work showed a hemoglobin of 5 and hematocrit of 19. Patient states that he has been having nose bleeds frequent for the last several days or so in 1 instance had his nose packed and irrigated. Patient feels fatigued short of breath dizzy and lightheaded and has had palpitations as well, he denies any melena bright red blood per rectum hematemesis or hemoptysis but has significant epistaxis, denies any weight loss, any PND, any orthopnea, chest pain, leg swelling, fevers, rigors or chills, cough or sputum production, no weight loss no changes in stool habits or character. Has a left foot ulcer at the plantar aspect base of the 1st metatarsal which he has been seeing a doctor in the outpatient setting for this. In emergency room preliminary workup was significant for CBC with hemoglobin of 5 and hematocrit of 19. Patient has been admitted for further management, evaluation and treatment. Review of Systems Review of Systems: Abnormal lab value fatigue shortness of breath palpitations left foot ulcer nose bleeds Constitutional: Constitutional: Denies chills, Reports fatigue, Denies fever(s), Denies malaise, Denies night sweats, Denies poor appetite and Denies weakness Eyes: Eyes: Denies change in vision ENT: Denies dysphagia, Denies nasal congestion, Denies nasal discharge, Denies nasal obstruction and Denies odynophagia Comments: Epistaxis Cardiovascular: Cardiovascular: Reports rapid heart rate, Denies irregular heart rhythm, Denies leg edema, Reports lightheadedness, Denies radiating jaw, neck or arm pain, Denies palpitations, Denies dyspnea on exertion, Denies orthopnea and Denies paroxysmal nocturnal dyspnea Respiratory: Respiratory: Denies chest congestion, Denies cough, Denies excessive phlegm production and Denies wheezing Gastrointestinal: Gastrointestinal: Denies abdominal pain, Denies melena, Denies hematochezia, Denies change in bowel habits, Denies change in stool character, Denies coffee ground emesis, Denies dyspepsia, Denies heartburn, Denies nausea and Denies vomiting Genitourinary: Genitourinary: Denies dysuria and Denies flank pain Integumentary/Breasts: Skin/Breast: Reports wounds (Left foot) Neurologic: Denies focal weakness and Denies Sensory deficit (Neuro) Psychiatric: Psychiatric: Reports no additional psychiatric complaints and Reports as per HPI Endocrine: Endocrine: Reports no additional endocrine complaints and Reports as per HPI Hematologic/Lymphatic: Hematologic/Lymphatic: Reports no additional hematologic/lymphatic complaints and Reports as per HPI Allergic/Immunologic: Allergic/Immunologic: Reports no additional allergic/immunologic complaints and Reports as per HPI PMFSH Past Medical History Medical History Bladder cancer He has had multiple cystoscopies with transurethral resection of bladder tumor and fulguration over the years per Dr. Caballero. Carotid stenosis, bilateral Cerebellar infarct Chronic anemia Colon cancer Patient had stage II rectal cancer, which was resected and August 2003. He apparently had chemotherapy and radiation thereafter. Diabetes mellitus Generalized seizure (~09/15/19) Gout HTN (hypertension) Pneumonia Surgical History Surgical History H/O arthroscopic knee surgery History of bilateral knee replacement History of colostomy History of partial colectomy August 2003; exploratory laparotomy with low anterior resection of colo rectum. This was complicated by a leak with subsequent transverse loop colostomy. Thereafter he had a repeat exploratory lap
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
--- NOTE | 2021-10-22 21:05 | ADMGEN ---
This patient, Byron De Los Santos, was admitted to Medical Room 345-. Patient/family oriented to hospital policies and general routines including ID bracelet, bed and alarms, visiting hours, pain management, procedures, bathroom and other care routines, personal items, smoking policy, room service/diet, and visiting hours. Information on how to activate the Rapid Response Team has been discussed. Patient/Family are encouraged to report perceived risks to care and to ask questions if they do not understand what they are told or what they should do.
[2021-10-22 21:24] LABS: Glucose Point of Care 139 mg/dl (65-105)
[2021-10-22] MEDS: SODIUM CHLORIDE 0.9% IV 250 ML 30 ML (22:12)
[2021-10-23 00:54] VITALS: BP 131/54; PULSE 95; RESP 16; TEMP 36.7; O2SAT 99
[2021-10-23 01:58] VITALS: BP 119/50; PULSE 94; RESP 18; TEMP 37.3; O2SAT 100
[2021-10-23 06:00] VITALS: BP 128/65; PULSE 105; RESP 18; TEMP 36.1; O2SAT 98
[2021-10-23 06:02] LABS: Hemoglobin 7.8 g/dL (14.0-18.0); Immature Platelet Fraction Pct 34.1 % (0.9-11.2); Mean Corpuscular HGB Conc 32.5 g/dl (32-36); Mean Corpuscular Hemoglobin 28.2 pg (26-34); Mean Corpuscular Volume 86.6 fl (80-100); Platelet Count Result 106 k/mm3 (150-375); Red Blood Count 2.77 M/mm3 (4.6-6.20); Red Cell Distribution Width 20.8 % (11.5-14.5); White Blood Count 8.1 K/mm3 (4.5-10.0)
[2021-10-23 06:15] LABS: Anion Gap 7 mmol/L (8-16); Blood Urea Nitrogen 20 mg/dL (9-20); Calcium 9.1 mg/dL (8.4-10.2); Carbon Dioxide 25 mmol/L (22-30); Chloride 101 mmol/L (98-107); Estimated CRCL calculation 47 ml/min; Estimated Glomerular Filt Rate > 60; Glucose 95 mg/dL (65-110); Sodium 133 mmol/L (137-145)
[2021-10-23 07:57] LABS: Glucose Point of Care 76 mg/dl (65-105)
[2021-10-23 08:21] VITALS: PULSE 88
[2021-10-23] MEDS: allopurinoL 300 MG TABLET PO (08:21)
[2021-10-23] MEDS: atenoloL 50 MG TABLET 100 MG PO (08:21)
[2021-10-23] MEDS: levETIRAcetam 500 MG TABLET PO ×2 (08:21→21:15)
[2021-10-23] MEDS: NEOMYCIN/POLYMYXIN/BACITRACIN OINTMENT 15 GM TUBE 1 APPLIC TOPICAL ×2 (09:54→21:16)
--- NOTE | 2021-10-23 10:54 | WPDGICN ---
Assessment and Plan Assessment and plan (1) Acute blood loss anemia: Code(s): D62 - Acute posthemorrhagic anemia Status: Acute Assessment and Plan: most likely for intermittent epistaxis for almost a month in setting of retirement use of xarelto patient denies any overt gib, he has a colostomy bag and always had brown stool, denies upper gi symptoms and he says that had recent colonoscopy (h/o rectal cancer several years ago) I offered to do EGD to make sure that no gi source of acute anemia but patients does not want to get procedure, he is comfortable and denies upper gi symptoms ok to continue with diet monitor hb and hold anticoagulation probably will need ENT evaluation again please call us if questions (2) Left-sided epistaxis: Code(s): R04.0 - Epistaxis Status: Acute Assessment and Plan: right now stopped (3) Atrial fibrillation: Code(s): I48.91 - Unspecified atrial fibrillation Status: Acute (4) Colon cancer: Code(s): C18.9 - Malignant neoplasm of colon, unspecified Status: Acute Assessment and Plan: he has been getting his surveillance colonoscopies as recommended (5) Colostomy in place: Code(s): Z93.3 - Colostomy status Status: Acute Assessment and Plan: only brown stool (6) Anticoagulant long-term use: Code(s): Z79.01 - nursing home (current) use of anticoagulants Status: Acute GI Consult Note Consult date/time: 10/23/21 10:54 Reason for consult: acute blood loss anemia, epistaxis HPI: Byron De Los Santos is a 81 year old male with history of colon cancer on August 2003; exploratory laparotomy with low anterior resection of rectum, complicated by a leak with subsequent transverse loop colostomy. Thereafter he had a repeat exploratory laparotomy with adhesiolysis, takedown and repair of a parastomal hernia, partial descending colectomy, and end descending colostomy. He says that has been having colonoscopies regularly, last time about 2 years ago and told to come back in 2 years. Also has Afib on xarelto, DM, HTN, gout. He has been having intermittent epistaxis for almost a month now, he actually went to see ENT last month (reviewed records) that performed anterior Cautery with silver nitrate and Packing Anterior Nosebleed, he kept packing for 3 days and did not have more recurrence but last few days again with more epistaxis, lately has been feeling more fatigued with short of breath on exertion, dizzy and lightheaded. Blood work as outpatient revealed hb 5, admitted to hospital and given blood transfusion. He denies dark stools (only brown stool in colostomy bag), no rectal bleeding, denies abdominal pain or gerd symptoms. He is feeling better after transfusion. Review of Systems Constitutional: Constitutional: Denies chills Eyes: Eyes: Denies blurry vision ENT: Reports Normal hearing present and Reports epistaxis Cardiovascular: Cardiovascular: Reports palpitations Respiratory: Respiratory: Reports dyspnea on exertion Gastrointestinal: Gastrointestinal: Denies abdominal pain, Denies melena, Denies nausea and Denies vomiting Genitourinary: Genitourinary: Denies dysuria Musculoskeletal: Musculoskeletal: Denies neck pain Integumentary/Breasts: Skin/Breast: Denies dry skin Neurologic: Denies headache(s) Psychiatric: Psychiatric: Reports no additional psychiatric complaints PMFSH Past Medical History Medical History (Updated 10/23/21 @ 11:01 by Roman Ortega MD) Anticoagulant long-term use Bladder cancer He has had multiple cystoscopies with transurethral resection of bladder tumor and fulguration over the years per Dr. Caballero. Carotid stenosis, bilateral Cerebellar infarct Chronic anemia Colon cancer Patient had stage II rectal cancer, which was resected and August 2003. He apparently had chemotherapy and radiation thereafter. Diabetes mellitus Generalized seizure (~09/15/19) Gout HTN (hype
[2021-10-23 11:29] LABS: Hematocrit 23.9 % (42.0-52.0); Hemoglobin 7.5 g/dL (14.0-18.0); Immature Platelet Fraction Pct 36.5 % (0.9-11.2); Mean Corpuscular HGB Conc 31.4 g/dl (32-36); Mean Corpuscular Hemoglobin 27.4 pg (26-34); Mean Corpuscular Volume 87.2 fl (80-100); Platelet Count Result 107 k/mm3 (150-375); Red Blood Count 2.74 M/mm3 (4.6-6.20); Red Cell Distribution Width 21.1 % (11.5-14.5); White Blood Count 9.4 K/mm3 (4.5-10.0)
[2021-10-23 14:00] VITALS: BP 131/63; PULSE 87; RESP 18; TEMP 36.5; O2SAT 98
--- NOTE | 2021-10-23 14:59 | PM.IMPN ---
Progress Note: A&P Assessment and Plan (1) Acute blood loss anemia: Code(s): D62 - Acute posthemorrhagic anemia Status: Acute Assessment and Plan: Transfuse as needed Likely secondary to profuse epistaxis Continue to monitor 10/23/2021 interval history patient with a anemia and concern epistaxis on and off with Xarelto, patient is seen GI does not suspect it is a GI source of bleed it patient has a colostomy bag there is always brown stool and no blood, patient be seen ENT and further recommendation to follow will continue to monitor. (2) Left-sided epistaxis: Code(s): R04.0 - Epistaxis Status: Acute Assessment and Plan: ENT consult Stable (3) Atrial fibrillation: Code(s): I48.91 - Unspecified atrial fibrillation Status: Acute Assessment and Plan: Holding Xarelto Rate controlled (4) Colostomy in place: Code(s): Z93.3 - Colostomy status Status: Acute Assessment and Plan: Colostomy care (5) Bladder cancer: Code(s): C67.9 - Malignant neoplasm of bladder, unspecified Status: Acute Assessment and Plan: Status post resection (6) HTN (hypertension): Code(s): I10 - Essential (primary) hypertension Status: Acute Assessment and Plan: Holding antihypertensive due to severe anemia Restart as needed (7) Diabetes mellitus: Code(s): E11.9 - Type 2 diabetes mellitus without complications Status: Acute Assessment and Plan: Holding glipizide Insulin sliding scale as needed (8) Carotid stenosis, bilateral: Code(s): I65.23 - Occlusion and stenosis of bilateral carotid arteries Status: Acute Assessment and Plan: Unchanged (9) Foot ulcer: Code(s): L97.509 - Non-pressure chronic ulcer of other part of unspecified foot with unspecified severity Status: Acute Assessment and Plan: Local care Subjective Date/time seen: 10/23/21 14:59 Chief Complaint: Abnormal lab value Narrative: This is an 81-year-old male with past medical history significant for atrial fibrillation, anticoagulated with Xarelto rate controlled, hypertension, gout. Patient presented to the emergency room after outpatient lab work showed a hemoglobin of 5 and hematocrit of 19. Patient states that he has been having nose bleeds frequent for the last several days or so in 1 instance had his nose packed and irrigated. Patient feels fatigued short of breath dizzy and lightheaded and has had palpitations as well, he denies any melena bright red blood per rectum hematemesis or hemoptysis but has significant epistaxis, denies any weight loss, any PND, any orthopnea, chest pain, leg swelling, fevers, rigors or chills, cough or sputum production, no weight loss no changes in stool habits or character. Has a left foot ulcer at the plantar aspect base of the 1st metatarsal which he has been seeing a doctor in the outpatient setting for this. In emergency room preliminary workup was significant for CBC with hemoglobin of 5 and hematocrit of 19. Patient has been admitted for further management, evaluation and treatment. 10/23/2021 interval history patient with a anemia and concern epistaxis on and off with Xarelto, patient is seen GI does not suspect it is a GI source of bleed it patient has a colostomy bag there is always brown stool and no blood, patient be seen ENT and further recommendation to follow will continue to monitor. Review of Systems Review of Systems: All systems reviewed & are unremarkable except as noted in HPI and below Exam Narrative: elderly frail Patient is comfortable, NAD HEENT: eyes are clear and none icteric, there is a dried blood in both nostrils LUNGS: normal respiratory effort. ABD: not distended Lower extremities: no edema SKIN: nonjaundiced Neuro: grossly intact. Objective Data Vital Signs Vital Signs: Vital Signs - 24 hr 10/22/21 15:12 10/22/21 15:3
[2021-10-23 20:55] LABS: Glucose Point of Care 100 mg/dl (65-105)
[2021-10-23 21:07] VITALS: BP 129/50; PULSE 96; RESP 12; TEMP 36.9; O2SAT 99
[2021-10-24 05:48] VITALS: BP 133/64; PULSE 94; RESP 12; TEMP 36.4; O2SAT 99
[2021-10-24 07:35] LABS: Hemoglobin 7.7 g/dL (14.0-18.0); Immature Platelet Fraction Pct 35.6 % (0.9-11.2); Mean Corpuscular HGB Conc 32.1 g/dl (32-36); Mean Corpuscular Hemoglobin 27.5 pg (26-34); Mean Corpuscular Volume 85.7 fl (80-100); Platelet Count Result 99 k/mm3 (150-375); Red Cell Distribution Width 20.9 % (11.5-14.5); White Blood Count 7.7 K/mm3 (4.5-10.0)
[2021-10-24 07:37] LABS: Anion Gap 8 mmol/L (8-16); Blood Urea Nitrogen 20 mg/dL (9-20); Calcium 9.1 mg/dL (8.4-10.2); Carbon Dioxide 22 mmol/L (22-30); Chloride 102 mmol/L (98-107); Estimated CRCL calculation 57 ml/min; Estimated Glomerular Filt Rate > 60; Glucose 90 mg/dL (65-110); Potassium 3.8 mmol/L (3.4-5.0); Sodium 132 mmol/L (137-145)
[2021-10-24 07:56] LABS: Glucose Point of Care 83 mg/dl (65-105)
[2021-10-24] MEDS: allopurinoL 300 MG TABLET PO (08:29)
[2021-10-24] MEDS: NEOMYCIN/POLYMYXIN/BACITRACIN OINTMENT 15 GM TUBE 1 APPLIC TOPICAL (08:30)
[2021-10-24] MEDS: atenoloL 50 MG TABLET 100 MG PO (08:30)
[2021-10-24 09:14] VITALS: BP 117/87; PULSE 90; RESP 24; TEMP 36.3; O2SAT 100
--- NOTE | 2021-10-24 10:23 | WPDGIPROGNO ---
Progress Note: A&P Assessment and Plan (1) Acute blood loss anemia: Code(s): D62 - Acute posthemorrhagic anemia Status: Acute Assessment and Plan: hb low but stable since blood transfusion no signs of gib and most likely cause is intermittent epistaxis for last month in setting of detention AC he does not want to proceed with endoscopic evaluation anyways follow-up with ENT will sign off (2) Left-sided epistaxis: Code(s): R04.0 - Epistaxis Status: Acute (3) Anticoagulant long-term use: Code(s): Z79.01 - custodial (current) use of anticoagulants Status: Acute (4) Colostomy in place: Code(s): Z93.3 - Colostomy status Status: Acute (5) Atrial fibrillation: Code(s): I48.91 - Unspecified atrial fibrillation Status: Acute (6) Colon cancer: Code(s): C18.9 - Malignant neoplasm of colon, unspecified Status: Acute Assessment and Plan: he says that has been getting his colonoscopies as recommended Subjective Date/time seen: 10/24/21 10:23 Interval history: no more epistaxis, tolerating regular diet and no signs of gib (still brown stool in ostomy bag) Review of Systems Review of Systems: All systems reviewed & are unremarkable except as noted in HPI and below Exam Const: General: comfortable and no acute distress HENMT: Other: dried blood in nostril, no more bleeding Eyes: Sclera: sclerae normal Neck: Neck: supple Resp: Auscultation: clear to auscultation bilaterally Cardio: Rate: regular rate GI: GI Palp: No Tenderness to palpation present (GI) and No Guarding due to palpation present (GI) Auscultation: normal bowel sounds Other: brown stool in ostomy bag Skin: General skin exam: no rashes or lesions noted Neuro: Speech: normal speech Extrem: General: normal to inspection Psych: Mental Status: mental status grossly normal Affect: normal affect Objective Data Vital Signs Vital Signs: Vital Signs - 24 hr 10/23/21 14:00 10/23/21 21:07 10/24/21 05:48 Temperature 97.7 F 98.4 F 97.5 F L Pulse Rate 87 96 94 Respiratory Rate 18 12 12 Blood Pressure 131/63 129/50 L 133/64 Pulse Oximetry 98 99 99 10/24/21 09:14 Temperature 97.3 F L Pulse Rate 90 Respiratory Rate 24 H Blood Pressure 117/87 Pulse Oximetry 100 Intake/Output Intake/Output: Intake & Output 10/21/21 10/22/21 10/23/21 10/24/21 23:59 23:59 23:59 23:59 Intake Total 350 1770 300 Output Total 100 1200 Balance 250 570 300 Meds/Results Medications: Active Medications Generic Name Dose Route Start Last Admin Trade Name Freq PRN Reason Stop Dose Admin Acetaminophen 650 mg 10/22/21 17:33 Acetaminophen 325 Mg Tablet PO Q4H PRN Mild Pain (1-3) or Fever Acetaminophen 650 mg 10/23/21 02:11 Acetaminophen 325 Mg Tablet PO Q8H PRN Pain Rated 1-3 Hydrocodone Bitart/Acetaminophen 1 tab 10/22/21 17:33 Hydrocodone/Acetaminophen (*Crx) 5-325 Mg Tablet PO Q4H PRN Pain Rated 4-6 Allopurinol 300 mg 10/23/21 08:00 10/24/21 08:29 Allopurinol 300 Mg Tablet PO 300 mg DAILY@0800 ANNY Administration Atenolol 100 mg 10/23/21 09:00 10/24/21 08:30 Atenolol 50 Mg Tablet PO 100 mg QAM ANNY Administration Dextrose 12.5 gm 10/24/21 08:03 Dextrose 50% 25 Gm/50 Ml Syringe IV PUSH PRN PRN Hypoglycemia Protocol Glucagon 1 mg 10/24/21 08:03 Glucagon For Inj 1 Mg Vial IM PRN PRN Hypoglycemia Protocol Glucose 15 gm 10/24/21 08:03 Glucose Oral Gel 15 Gm Of Glucse In 37.5 Gm Tube PO PRN PRN Hypoglycemia Protocol Dextrose 1,000 mls @ 100 mls/hr 10/24/21 08:03 Dextrose 5% 1,000 Ml IVPB PRN PRN Hypoglycemia Protocol Insulin Aspart 2 - 5 units 10/24/21 12:00 Insulin Aspart (*Bkc) 100 Units/Ml SUB-Q TIDWM [facility] Protocol Levetiracetam 500 mg 10/23/21 09:00 10/23/21 21:15 Levetiracetam 500 Mg
--- NOTE | 2021-10-24 10:24 | PM.DS ---
DS: Admitting Diagnosis Discharge Date 10/24/2021 Admitting Diagnosis Abnormal lab anemia DS: Discharge Diagnosis Discharge Diagnosis (1) Acute blood loss anemia: Code(s): D62 - Acute posthemorrhagic anemia Status: Acute Assessment and Plan: Transfuse as needed Likely secondary to profuse epistaxis Continue to monitor 10/23/2021 interval history patient with a anemia and concern epistaxis on and off with Xarelto, patient is seen GI does not suspect it is a GI source of bleed it patient has a colostomy bag there is always brown stool and no blood, patient be seen ENT and further recommendation to follow will continue to monitor. (2) Left-sided epistaxis: Code(s): R04.0 - Epistaxis Status: Acute Assessment and Plan: ENT consult Stable (3) Atrial fibrillation: Code(s): I48.91 - Unspecified atrial fibrillation Status: Acute Assessment and Plan: Holding Xarelto Rate controlled (4) Colostomy in place: Code(s): Z93.3 - Colostomy status Status: Acute Assessment and Plan: Colostomy care (5) Bladder cancer: Code(s): C67.9 - Malignant neoplasm of bladder, unspecified Status: Acute Assessment and Plan: Status post resection (6) HTN (hypertension): Code(s): I10 - Essential (primary) hypertension Status: Acute Assessment and Plan: Holding antihypertensive due to severe anemia Restart as needed (7) Diabetes mellitus: Code(s): E11.9 - Type 2 diabetes mellitus without complications Status: Acute Assessment and Plan: Holding glipizide Insulin sliding scale as needed (8) Carotid stenosis, bilateral: Code(s): I65.23 - Occlusion and stenosis of bilateral carotid arteries Status: Acute Assessment and Plan: Unchanged (9) Foot ulcer: Code(s): L97.509 - Non-pressure chronic ulcer of other part of unspecified foot with unspecified severity Status: Acute Assessment and Plan: Local care DS: Summary Hospital Course Reason for hospitalization: Chief Complaint: Abnormal lab value Narrative: This is an 81-year-old male with past medical history significant for atrial fibrillation, anticoagulated with Xarelto rate controlled, hypertension, gout. Patient presented to the emergency room after outpatient lab work showed a hemoglobin of 5 and hematocrit of 19. Patient states that he has been having nose bleeds frequent for the last several days or so in 1 instance had his nose packed and irrigated. Patient feels fatigued short of breath dizzy and lightheaded and has had palpitations as well, he denies any melena bright red blood per rectum hematemesis or hemoptysis but has significant epistaxis, denies any weight loss, any PND, any orthopnea, chest pain, leg swelling, fevers, rigors or chills, cough or sputum production, no weight loss no changes in stool habits or character. Has a left foot ulcer at the plantar aspect base of the 1st metatarsal which he has been seeing a doctor in the outpatient setting for this. In emergency room preliminary workup was significant for CBC with hemoglobin of 5 and hematocrit of 19. Patient has been admitted for further management, evaluation and treatment. Hospital Course: 10/23/2021 interval history patient with a anemia and concern epistaxis on and off with Xarelto, patient is seen GI does not suspect it is a GI source of bleed it patient has a colostomy bag there is always brown stool and no blood, patient be seen ENT and further recommendation to follow will continue to monitor. Patient with nose bleed and anemia, Xalreto was placed on hold, now his nose bleeding has stopped, plan was resume his Xarelto today however patient is scheduled for shoulder surgery on Monday and his surgeon had asked him to hold Xarelto for the surgery. will discharge the patient today, he will follow up with his primary care and orthopedic surgeo
[2021-10-24] MEDS: levETIRAcetam 500 MG TABLET PO (10:52)
== END 2021-10-24 13:41 | disposition home or self-care (01) ==
LOC: ANHED 15:55 → ANH3MED 18:22
PROVIDERS: Internal Medicine; Admitting Provider Family Medicine; Emergency Provider Emergency Medicine; PCP Internal Medicine; Visit Provider Family Medicine
DX: D62 Acute posthemorrhagic anemia (principal); R04.0 Epistaxis; I48.91 Unspecified atrial fibrillation; E11.621 Type 2 diabetes mellitus with foot ulcer; L97.429 Non-pressure chronic ulcer of left heel and midfoot with unspecified severity; I10 Essential (primary) hypertension; I65.23 Occlusion and stenosis of bilateral carotid arteries; M10.9 Gout, unspecified; Z85.038 Personal history of other malignant neoplasm of large intestine; Z85.51 Personal history of malignant neoplasm of bladder; Z92.21 Personal history of antineoplastic chemotherapy; Z92.3 Personal history of irradiation; Z90.49 Acquired absence of other specified parts of digestive tract; Z86.73 Personal history of transient ischemic attack (TIA), and cerebral infarction without residual deficits; Z87.891 Personal history of nicotine dependence; Z93.3 Colostomy status; Z79.84 Long term (current) use of oral hypoglycemic drugs; Z79.01 Long term (current) use of anticoagulants
CPT/HCPCS: 36415; 36430; 80048; 82948; 85025; 85027; 85055; 85610; 85730; 86850; 86900; 86901; 86920; 99285; A9270; G0378; J7050; P9016